=== PATIENT | female | born 1995 | race Caucasian/White ===

== ENCOUNTER 2024-07-30 08:12 | Outpatient (OUT) | payer OTHER, SELFPAY ==
[2024-07-30 10:10] LABS: Free T4 1.05 ng/dL (0.76-1.46)
[2024-07-30 10:15] LABS: Glucose 79 mg/dL (74-106); Thyroid Stimulating Hormone 0.623 uIU/mL (0.358-3.740)
[2024-07-31 04:07] LABS: Estradiol 93.5 pg/mL (.); Progesterone 0.2 ng/mL (.)
[2024-08-03 00:07] LABS: Free Testosterone(Direct) 0.6 pg/mL (0.0-4.2); Testosterone 18 ng/dL (8-60)
== END 2024-07-30 08:13 | disposition home or self-care (01) ==
LOC: LAB 08:21
PROVIDERS: PCP Family Medicine; Visit Provider Obstetrics & Gynecology
DX: L65.9 Nonscarring hair loss, unspecified (principal); R63.5 Abnormal weight gain; R53.83 Other fatigue
CPT/HCPCS: 36415; 82670; 82947; 83001; 84144; 84402; 84403; 84439; 84443

== ENCOUNTER 2024-12-03 08:35 | Outpatient (OUT) | payer OTHER, SELFPAY | END 2024-12-03 08:36 | disposition home or self-care (01) | LOC: LAB 08:36 | PROVIDERS: PCP Family Medicine; Visit Provider Obstetrics & Gynecology | DX: Z32.00 Encounter for pregnancy test, result unknown (principal) | CPT/HCPCS: 36415; 84702 ==

== ENCOUNTER 2024-12-05 08:20 | Outpatient (OUT) | payer OTHER, SELFPAY ==
--- OUTSIDE RECORDS SUMMARY | 2024-12-05 08:24 | XMS_ITS | Encounter Summary ---
Author Organization [facility] Address [address] [place] [address] Care Team Providers Care Laser Technician Name Role Phone Mariusz Becker MD Primary Care Provider [phone] Encounter Details Date Type Department Care Team (Late Contact Info) Description 08/07/2024 Results Follow-Up [facility] [address] [place] [address] Sheela Morataya, DO [address] [place] [address] TSH Social History Tobacco Use Types Packs/Day Years Used Date Smoking Tobacco: Never Smokeless Tobacco: Never Alcohol Use Standard Drinks/Week Comments Never 0 (1 standard drink = 0.6 oz pur e alcohol) caffeine:1cup per day Education Answer Date Recorded What is the highest level of school you have completed or the highest degree you have received? Bachelor's degree (e.g., BA, AB, BS) 08/05/2022 Comments Unknown Sex and Gender Information Value Date Recorded Sex Assigned at Not on file Legal Sex Female 7:25 PM EDT Gender Identity Not on file Sexual Orientation Not on file documented as of this encounter Plan of Treatment Upcoming Encounters Date Type Department Care Team (Late st Contact Info) Description 04/07/2025 10:15 AM EST Office Visit [facility] [address] [place] [phone] Sheela Morataya, DO [address] [place] [address] documented as of this encounter Visit Diagnoses Not on filedocumented in this encounter Care Teams Laser Technician Relationship Specialty Start Date End Date Mariusz Becker MD PCP - General Family Medicine 08/31/22 documented as of this encounter
--- OUTSIDE RECORDS SUMMARY | 2024-12-05 08:24 | XMS_ITS | Clinical Summary ---
Author Organization [facility] Address [address] [place] [address] Care Team Providers Care Site Physician Name Role Phone Mariusz Becker MD Primary Care Provider [phone] Allergies No known active allergies Medications Vit w/Wt-Ngesmgqlz-ZX (PNV PO) PNV Active Encounters Date Type Department Care Team Description 12/03/2024 Results Follow-Up [facility] [place] [facility] [address] [facility] [address] [place] [address] Sheela Morataya DO hCG, quantitative, 12/02/2024 Telephone [facility] [place] [facility] [address] [facility] [address] [place] [address] Sheela Morataya DO from Last 3 Months Family History Medical History Relation Name Comments No Known Problems Daughter Breast cancer Mother's Sister Aunt No Known Problems Sister Relation Name Status Comments Daughter Father Alive Mother Alive Mother's Sister Aunt Other Sister Social History Tobacco Use Types Packs/Day Years Used Date Smoking Tobacco: Never Smokeless Tobacco: Never Tobacco Cessation:Counseling Given: Not Answered Alcohol Use Standard Drinks/Week Comments Never 0 [...] on file Sexual Orientation Not on file Last Filed Vital Signs Vital Sign Reading Time Taken Comments Blood Pressure 102/60 11/28/2023 1:35 PM EDT Pulse - - Temperature - - Respiratory Rate - - Oxygen Saturation - - Inhaled Oxygen Concentration - - Weight 53.1 kg (117 lb) 11/28/2023 1:35 PM EDT Height 157.5 cm (5' 2 ) 11/28/2023 1:35 PM EDT Body Mass Index 21.4 11/28/2023 1:35 PM EDT Plan of Treatment Upcoming Encounters Date Type Department Care Team (Late st Contact Info) Description 04/07/2025 10:15 AM EST Office Visit [facility] [place] [facility] [address] [place] [address] Sheela Morataya DO [address] [place] [address] Procedures Procedure Name Priority Date/Time Associated Diagnosis Comments HCG, TOTAL, QN Routine 12/03/2024 2:48 PM EDT examination or test, unconfirmed from Last 3 Months Results * hCG, quantitative, (12/03/2024 2:48 PM EDT) Blood Venous blood specimen / Unknown us Sheela Morataya DO LAB BLOOD ORDERABLES Final Result EXTERNAL LAB from Last 3 Months Insurance [employer] Care Teams Site Physician Relationship Specialty Start Date End Date Mariusz Becker MD PCP - General Family Medicine 08/31/22
--- OUTSIDE RECORDS SUMMARY | 2024-12-05 08:24 | XMS_ITS | Encounter Summary ---
Author Organization [facility] Address [address] [place] [address] Care Team Providers Care It Systems Analyst Name Role Phone Mariusz Becker MD Primary Care Provider [phone] Encounter Details Date Type Department Care Team (Late st Contact Info) Description 12/03/2024 Results Follow-Up [facility] [place] [facility] [address] [facility] [address] [place] [phone] Sheela Morataya, DO [address] [facility] [address] [place] [address] hCG, quantitative, Social History Tobacco Use Types Packs/Day Years [...] on file documented as of this encounter Miscellaneous Notes * Telephone Encounter - Champ Abreu LPN - 12/05/2024 7:40 AM EDT See open TE documented in this encounter Plan of Treatment Upcoming Encounters Date Type Department Care Team (Late st Contact Info) Description 04/07/2025 10:15 AM EST Office Visit [facility] [place] [facility] [address] [place] [address] Sheela Morataya DO [address] [place] [address] documented as of this encounter Visit Diagnoses Not on filedocumented in this encounter Care Teams It Systems Analyst Relationship Specialty Start Date End Date Mariusz Becker MD PCP - General Family Medicine 08/31/22 documented as of this encounter
--- OUTSIDE RECORDS SUMMARY | 2024-12-05 08:24 | XMS_ITS | Encounter Summary ---
Author Organization [facility] Address [address] [place] [address] Care Team Providers Care Extruder Operator Multiple Name Role Phone Mariusz Becker MD Primary Care Provider [phone] Encounter Details Date Type Department Care Team (Late st Contact Info) Description 12/02/2024 Telephone [facility] [place] [facility] [address] [facility] [address] [place] [phone] Sheela Morataya DO [address] [facility] [address] [place] [address] Social History Tobacco Use Types Packs/Day Years [...] Telephone Encounter - Champ Abreu LPN - 12/04/2024 8:52 AM EDT Called and spoke with pt regarding HCG 715. Advised pt to return to get HCG drawn again 12/05 at [facility] doctors request. Order sent * Telephone Encounter - Champ Abreu LPN - 12/04/2024 8:51 AM EDT Sheela Morataya DO 12/03/24 3:38 PM Result Note Please call with quant result of 715- would repeat in 48 hours * Telephone Encounter - Jeanie Elder RN - 12/02/2024 4:08 PM EDT Pt calling office and LM at [phone]. States she is following up from earlier. Hoping to have HCG drawntoday, asking for a return call. Called and spoke with pt at this time. Confirmed positive UPT and LMP 11/05/24, regular. MAB x3 Patient of [facility], insurance MMO Discussed HCG. Pt would like sent to [facility]. Order sent. Advised I would call with results, aware she may need this repeated at least once. * Telephone Encounter - Chapis Hazel - 12/02/2024 9:35 AM EDT Patient called asking if she can have a hcg order sent over to [facility]. She took a positive test last week. The patient states the first day of her last period was November 05. She ask if astanding order can be placed as she typically needs a repeat hcg done. documented in this encounter Plan of Treatment Upcoming Encounters Date Type Department Care Team (Late st Contact Info) Description 04/07/2025 10:15 AM EST Office Visit [facility] [place] [facility] [address] [place] [phone] Sheela Morataya DO [address] [place] [address] Scheduled Orders Name Type Priority Associated Diagnoses Orde r Schedule hCG, quantitative Lab Routine examination or test, unconfirmed Expected: 12/04/2024 (Approximate), Expires: 12/04/2025 documented as of this encounter Procedures Procedure Name Priority Date/Time Associated Diagnosis Comments HCG, TOTAL, QN Routine 12/03/2024 2:48 PM EDT examination or test, unconfirmed documented in this encounter Results * hCG, quantitative, (12/03/2024 2:48 PM EDT) Blood Venous blood specimen / Unknown us Sheela Morataya DO LAB BLOOD ORDERABLES Final Result EXTERNAL LAB documented in this encounter Visit Diagnoses Diagnosis examination or test, unconfirmed documented in this encounter Care Teams Extruder Operator Multiple Relationship Specialty Start Date End Date Mariusz Becker MD PCP - General Family Medicine 08/31/22 documented as of this encounter
--- OUTSIDE RECORDS SUMMARY | 2024-12-05 08:24 | XMS_ITS | Clinical Summary ---
Author Organization [facility] tem Address [id number] [address] [place] [address] Care Team Providers Care Medical Transcription Name Role Phone No Pcp, No Pcp Primary Care Provider Unavailabl e Social History Tobacco Use Types Packs/Day Years Used Date Smoking Tobacco: Never Assessed Childcare Answer Date Recorded Childcare Unknown 08/29/2018 Employment Answer Date Recorded Employment Unknown 08/29/2018 Purpose - Life Answer Date Recorded Purpose and direction in life Unknown Comments Unknown Sex and Gender Information Value Date Recorded Sex Assigned at Not on file Legal Sex Female 12:42 PM EDT Gender Identity Not on file Sexual Orientation Not on file Plan of Treatment Not on file Medical Devices Not on file Insurance [employer] Care Teams Medical Transcription Relationship Specialty Start Date End Date No Pcp, [place] [id number] PCP - General Family Medicine 08/17/17
--- OUTSIDE RECORDS SUMMARY | 2024-12-05 08:25 | XMS_ITS | Encounter Summary ---
Author Organization [facility] Address [address] [place] [address] Care Team Providers Care Reproduction Artist Name Role Phone Mariusz Becker MD Primary Care Provider [phone] Encounter Details Date Type Department Care Team (Late Contact Info) Description 08/05/2022 Abstract [facility] [address] [place] [phone] Sheela Morataya DO [address] [place] [address] Social History Tobacco Use Types Packs/Day Years Used Date Smoking Tobacco: Never Smokeless Tobacco: Never Alcohol Use Standard Drinks/Week Comments Never 0 (1 standard drink = 0.6 oz pur e alcohol) caffeine:1cup per day Education Answer Date Recorded What is the highest level of school you have completed or the highest degree you have received? Bachelor's degree (e.g., BA, AB, BS) 08/05/2022 Comments Yes Sex and Gender Information Value Date Recorded Sex Assigned at Not on file Legal Sex Female 7:25 PM EDT Gender Identity Not on file Sexual Orientation Not on file documented as of this encounter Plan of Treatment Upcoming Encounters Date Type Department Care Team (Late Contact Info) Description 04/07/2025 10:15 AM EST Office Visit [facility] [address] [place] [phone] Sheela Morataya DO [address] [place] [address] documented as of this encounter Visit Diagnoses Not on filedocumented in this encounter Care Teams Reproduction Artist Relationship Specialty Start Date End Date Mariusz Becker MD PCP - General Family Medicine 08/31/22 documented as of this encounter
--- OUTSIDE RECORDS SUMMARY | 2024-12-05 08:25 | XMS_ITS | Encounter Summary ---
Author Organization [facility] Address [address] [place] [address] Care Team Providers Care Bricklayer'S Assistant Name Role Phone Mariusz Becker MD Primary Care Provider [phone] Encounter Details Date Type Department Care Team (Late Contact Info) Description 09/06/2022 Abstract [facility] [address] [place] [phone] Sheela Morataya DO [address] [place] [address] Social History Tobacco Use Types Packs/Day Years [...] [address] [place] [phone] Sheela Morataya DO [address] [place] [address] documented as of this encounter Visit Diagnoses Not on filedocumented in this encounter Care Teams Bricklayer'S Assistant Relationship Specialty Start Date End Date Mariusz Becker MD PCP - General Family Medicine 08/31/22 documented as of this encounter
--- OUTSIDE RECORDS SUMMARY | 2024-12-05 08:25 | XMS_ITS | Encounter Summary ---
Author Organization [facility] Address [address] [place], [place] [phone] Care Team Providers Care It Infrastructure Manager Name Role Phone Mariusz Becker MD Primary Care Provider [phone] Source Comments In the event this information is protected by the Federal Confidentiality of Alcohol and Drug AbusePatient Records regulations: The Federal rules restrict any use of the information to criminally investigate or prosecute any alcohol or drug abuse patient.[facility] Encounter Details Date Type Department Care Team (Latest Contact Info) Description 05/07/2018 H&P External-NonCCF Provider, External, PA-C Do not enter address information under generic External Provider. Social History Tobacco Use Types Packs/Day Years Used Date Smoking Tobacco: Never Assessed Comments No Sex and Gender Information Value Date Recorded Sex Assigned at Not on file Legal Sex Female 8:05 AM EST Gender Identity Not on file Sexual Orientation Not on file documented as of this encounter Functional Status * Are you deaf or do you have serious difficulty hearing? Answer Date of Assessment Author No 08/19/2013 7:00 AM Boy Curtis * Are you blind or do you have serious difficulty seeing, even when wearing glasses? Answer Date of Assessment Author No 08/19/2013 7:00 AM Boy Curtis * Do you have serious difficulty walking or climbing stairs? Answer Date of Assessment Author No 08/19/2013 7:00 AM Boy Curtis * Do you have difficulty dressing or bathing? Answer Date of Assessment Author No 08/19/2013 7:00 AM Boy Curtis * Because of a physical, mental, or emotional condition, do you have difficulty doing errands alone such as visiting a doctor's office or shopping? Answer Date of Assessment Author No 08/19/2013 7:00 AM Boy Curtis documented as of this encounter Mental Status * Because of a physical, mental, or emotional condition, do you have serious difficulty concentrating, remembering, or making decisions? Answer Entry Date Author No 08/19/2013 7:00 AM Boy Curtis documented in this encounter Plan of Treatment Not on file documented as of this encounter Visit Diagnoses Not on filedocumented in this encounter Care Teams It Infrastructure Manager Relationship Specialty Start Date End Date Mariusz Becker MD PCP - General 12/25/05 documented as of this encounter
--- OUTSIDE RECORDS SUMMARY | 2024-12-05 08:25 | XMS_ITS | Encounter Summary ---
Author Organization [facility] Address [address] [place] [address] Care Team Providers Care Workers Compensation Attorney Name Role Phone Mariusz Becker MD Primary Care Provider [phone] Encounter Details Date Type Department Care Team (Late Contact Info) Description 06/08/2023 Abstract [facility] [address] [place] [phone] Sheela Morataya DO [address] [place] [address] Social History Tobacco Use Types Packs/Day Years Used Date Smoking Tobacco: Never Smokeless Tobacco: Never Alcohol Use Standard Drinks/Week Comments Never 0 (1 standard drink = 0.6 oz pur e alcohol) caffeine:1cup per day Education Answer Date Recorded What is the highest level of school you have completed or the highest degree you have received? Bachelor's degree (e.g., BA, AB, BS) 08/05/2022 Comments No Sex and Gender Information Value [...] [address] [place] [phone] Sheela Morataya DO [address] [place] [address] documented as of this encounter Visit Diagnoses Not on filedocumented in this encounter Care Teams Workers Compensation Attorney Relationship Specialty Start Date End Date Mariusz Becker MD PCP - General Family Medicine 08/31/22 documented as of this encounter
--- OUTSIDE RECORDS SUMMARY | 2024-12-05 08:25 | XMS_ITS | Encounter Summary ---
Author Organization [facility] Address [address] [place] [address] Care Team Providers Care Adobe Cq Developer Name Role Phone Mariusz Becker MD Primary Care Provider [phone] Encounter Details Date Type Department Care Team (Late Contact Info) Description 08/22/2022 Orders Only [facility] [address] [place] [address] Provider, MD Nick [address] [place] [id number] Social History Tobacco Use Types Packs/Day Years [...] [address] [place] [address] Sheela Morataya DO [address] [place] [address] documented as of this encounter Procedures Procedure Name Priority Date/Time Associated Diagnosis Comments ULTRASOUND : OBSTETRICS Routine 08/18/2022 9:41 AM EDT documented in this encounter Results * ULTRASOUND : OBSTETRICS (08/18/2022 9:41 AM EDT) Anatomical Region Laterality Modality Radiographic Sheri ging us Historical Provider IMG XR PROCEDURES Final R esult documented in this encounter Visit Diagnoses Not on filedocumented in this encounter Care Teams Adobe Cq Developer Relationship Specialty Start Date End Date Mariusz Becker MD PCP - General Family Medicine 08/31/22 documented as of this encounter
--- OUTSIDE RECORDS SUMMARY | 2024-12-05 08:25 | XMS_ITS | Clinical Summary ---
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 Mar 2022 Critical titer met. Plan Weekly MCA Dopplers. 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 MCA dopplers every other week. Delivery planned for 37 weeks. History of blood transfusion 2018 Scoliosis (and kyphoscoliosis), idiopathic 05/01 Social History Tobacco Use Types Packs/Day Years Used Date Smoking Tobacco: Never Assessed Area Deprivation Index Answer Date Cheikh rded National Score (1-100), lower number is lower ri sk 64 07/21/2022 State Score (1-10), lower number is lower risk 4 07/21/2022 Data from: https://www.neigh borhoodatlas.medicine.[facility]/. Last address used for calculation [address] 07/21/2022 Comments No Sex and Gender Information Value Date Recorded Sex Assigned at Not on file Legal Sex Female 8:05 AM EST Gender Identity Not on file Sexual Orientation Not on file Last Filed Vital Signs Vital Sign Reading Time Taken Comments Blood Pressure 125/68 09/01/2022 3:46 PM EDT Pulse 83 09/01/2022 3:46 PM EDT Temperature 36.2 C (97.2 F) 02/22/2008 8:12 AM EST Respiratory Rate 17 02/22/2008 8:12 AM EST Oxygen Saturation 98% 02/22/2008 8:12 AM EST Inhaled Oxygen Concentration - - Weight 69.9 kg (154 lb) 09/01/2022 3:46 PM EDT Height 160 cm (5' 3 ) 09/01/2022 3:46 PM EDT Body Mass Index 27.28 09/01/2022 3:46 PM EDT Plan of Treatment Health Maintenance Due Date Last Done Comments Anxiety Screening 2011 Depression Screening 2011 HIV Screening 2011 Hepatitis C Screening 2011 Cervical Cancer Screening 2014 Influenza Vaccine (#1) 2024 , 01/30/2019, 01/10/2018, Additional history exists DTaP,Tdap,Td Vaccine (6 - Td or Tdap) 10/08/2028 10/08/2018, 09/15/2008, 1993, Additional history exists Hepatitis B Vaccine Completed 1993, 1993, 1993 HPV Vaccine Completed 04/10/2011, 11/17, 09/29/2010 Insurance BLUE ACCESS PPO Care Teams Heel Sander Relationship Specialty Start Date End Date Mariusz Becker MD PCP - General 12/25/05
--- OUTSIDE RECORDS SUMMARY | 2024-12-05 08:25 | XMS_ITS | Patient Health Record ---
Author Organization [facility] in [place] Address [address] [place] [address] Care Team Providers Care Churn Operator Name Role Phone Yoni Becker Primary Care Provider [phone] Allergies No Known Allergies Results Component Value Reference Range Notes FREE T4 Reviewed date:07/30/2024 07:13:33 PM Interpretation: Performing Lab: Notes/Report: [facility] , Free T4 1.05 0.76-1.46 ng/dL Performing Lab: see note ML - [facility] LB GLUCOSE BLOOD Reviewed date:07/30/2024 07:13:33 PM Interpretation: Performing Lab: Notes/Report: [facility] , Glucose 79 74-106 mg/dL Performing Lab: see note ML - [facility] LB TSH Reviewed date:07/30/2024 07:13:33 PM Interpretation: Performing Lab: Notes/Report: [facility] , Thyroid Stimulating Hormone 0.623 0.358-3.740 u IU/mL Performing Lab: see note ML - [facility] LB PREG QUANT HCG Reviewed date:12/03/2024 12:29:07 PM Interpretation: Performing Lab: Notes/Report: [facility] , HCG Quantitative 715 5-50 0.2-1 WEEK 50-500 1-2 WEEKS 100-5,000 2-3 WEEKS 500-10,000 3-4 WEEKS 1,000-50,000 4-5 WEEKS 10,000-100,000 5-6 WEEKS 15,000-200,000 6-8 WEEKS 10,000-100,000 2-3 MONTHS Performing Lab: see note [facility] LB Testosterone,Free and Total Reviewed date:08/03/2024 09:49:10 PM Interpretation: Performing Lab: Notes/Report: [facility] , Testosterone 18 8-60 ng/dL Free Testosterone(Direct) 0.6 0.0-4.2 pg/mL Performed at: [address] [id number] Equipment Lead: Immanuel Patel PhD, Phone: [phone] Performed at: [address] [id number] Equipment Lead: Jemal Phillips MD, Phone: [phone] Performing Lab: see note [facility] LB Estradiol Reviewed date:08/03/2024 09:49:10 PM Interpretation: Performing Lab: Notes/Report: [facility] , Estradiol 93.5 . pg/mL Adult Female Range Follicular phase 12.5 - 166.0 Ovulation phase 85.8 - 498.0 Luteal phase 43.8 - 211.0 Postmenopausal <6.0 - 54.7 1st trimester 215.0 - >4300.0 Carin ECLIA methodology Performing Lab: see note [facility] LB FSH Reviewed date:08/03/2024 09:49:10 PM Interpretation: Performing Lab: Notes/Report: [facility] , FSH 5.0 . mIU/mL Adult Female Range Follicular phase 3.5 - 12.5 Ovulation phase 4.7 - 21.5 Luteal phase 1.7 - 7.7 Postmenopausal 25.8 - 134.8 Performing Lab: see note [facility] LB Progesterone Reviewed date:08/03/2024 09:49:10 PM Interpretation: Performing Lab: Notes/Report: [facility] , Progesterone 0.2 . ng/mL Follicular phase 0.1 - 0.9 Luteal phase 1.8 - 23.9 Ovulation phase 0.1 - 12.0 First trimester 11.0 - 44.3 Second trimester 25.4 - 83.3 Third trimester 58.7 - 214.0 Postmenopausal 0.0 - 0.1 Performed at: [address] [id number] Equipment Lead: Immanuel Patel PhD, Phone: [phone] Performing Lab: see note LC - [facility] LB Reason For Referral No Information Medications Medication SIG (Take, Route, Frequency, Duration) Notes Start Date End Date Status Amoxicillin-Pot Clavulanate 875-125 MG 1 tablet Orally every 12 hrs; Duration: 10 day(s) 12/25/2022 Active 28-0.8 MG 1 tablet Orally Once a day Active Social History Tobacco Use: Social History Observation Description Date Details (start date - stop date) Never Smoker NA - NA Tobacco Use/Smoking Question Answer Notes Patient is a nonsmoker Alcohol Screen (Audit-C) Question Answer Notes Did you have a drink containing alcohol in the p ast year? No Points 0 Interpretation Negative Problems Problem Type SNOMED Code ICD Code Onset Dates Problem Status W/U Status Risk Notes Problem Attention deficit hyperactivity disorder (060476422) ADHD (attention deficit hyperactivity disorder) (F90.9) Active confirmed Problem Seasonal allergic rhinitis (851870428) Seasonal allergic rhinitis (J30.2) Active confirmed Problem Acute sinusitis (82297011) Acute sinus infection (J01.90) Active confirmed Problem Pelvic congestion syndrome (42836418) Pelvic congestion syndrome (N94.89) Active confirmed Plan Of Treatment No Information Insurance Providers Payer Name Payer Address Payer Phone Subscriber Number Group Number Insured Name Patient Relationship to Insured Coverage Start Date Coverage End Date [employer] PPO PLUS LOCAL PLAN [address] [place] [phone] [id number] Meli Ash Self - patient is the insured 3 Medical (General) History Medical History History ICD Code Bunion M21.619 Seasonal allergic rhinitis J30.2 Pelvic congestion syndrome N94.89 ADHD (attention deficit hyperactivity di sorder) F90.9 Varicella without complication B01.9 Scoliosis M41.9 Surgical History Surgery Date(Month/Year) Spinal fusion lumbar and thoracic 2013 Hospitalization History Reason Date(Month/Year) child see above
== END 2024-12-05 08:21 | disposition home or self-care (01) ==
LOC: LAB 08:21
PROVIDERS: PCP Family Medicine; Visit Provider Obstetrics & Gynecology
DX: Z32.00 Encounter for pregnancy test, result unknown (principal)
CPT/HCPCS: 36415; 84702

== ENCOUNTER 2024-12-23 09:26 | Outpatient (OUT) | payer OTHER, SELFPAY ==
[2024-12-23 10:01] LABS: Hematocrit 33.5 % (36.0-48.0); Hemoglobin 11.4 g/dL (12.0-16.0); Immature Granulocytes Abs Auto 0.01 10^3/uL (0.00-0.03); Immature Granulocytes Pct Auto 0.2 % (0.0-0.5); Lymphocytes Absolute Auto 1.4 10^3/uL (1.2-3.8); Mean Corpuscular HGB Conc 34.0 g/dL (29.9-35.2); Mean Corpuscular Hemoglobin 28.8 pg (26.7-34.0); Mean Corpuscular Volume 84.6 fL (81.0-99.0); Platelet Count 171 10^3/uL (150-450); Red Blood Count 3.96 10^6/uL (4.20-5.40); White Blood Count 4.7 10^3/uL (4.0-11.0)
[2024-12-23 10:16] LABS: Glucose Urine UA NEGATIVE (NEGATIVE)
[2024-12-23 10:21] LABS: Cast Seen? NONE SEEN #/LPF (NONE SEEN); Crystals Seen? None Seen #/HPF (None Seen)
[2024-12-23 14:03] LABS: Cannabinoid Screen Urine NEGATIVE (NEGATIVE); Methamphetamines Screen Urine NEGATIVE (NEGATIVE); Tricyclic Antidepressant Urine NEGATIVE (NEGATIVE)
[2024-12-24 06:12] LABS: RPR Non Reactive (Non Reactive); Rubella Antibodies, IgG 3.30 index (Immune >0.99)
== END 2024-12-23 09:27 | disposition home or self-care (01) ==
LOC: LAB 09:27
PROVIDERS: PCP Family Medicine; Visit Provider Obstetrics & Gynecology
DX: Z34.81 Encounter for supervision of other normal pregnancy, first trimester (principal)
CPT/HCPCS: 36415; 80307; 81001; 85025; 86592; 86762; 86803; 86850; 86900; 86901; 87086; 87340; 87389

== ENCOUNTER 2025-02-27 08:05 | Outpatient (OUT) | payer OTHER, SELFPAY | END 2025-02-27 08:06 | disposition home or self-care (01) | LOC: LAB 08:07 | PROVIDERS: PCP Family Medicine; Visit Provider Obstetrics & Gynecology | DX: Z34.82 Encounter for supervision of other normal pregnancy, second trimester (principal) | CPT/HCPCS: 36415; 86850; 86900; 86901 ==

== ENCOUNTER 2025-03-02 08:12 | Outpatient (OUT) | payer OTHER, SELFPAY ==
--- OUTSIDE RECORDS SUMMARY | 2025-03-02 08:16 | XMS_ITS | Clinical Summary ---
Author Organization [facility] Address [address] [place] [address] Care Team Providers Care Business Insurance Agent Name Role Phone Mariusz Becker MD Primary Care Provider [phone] Allergies No known active allergies Medications MedicationSigDispense QuantityRefillsLast FilledStart DateEnd DateStatus Vit w/Au-Fmmgabtdr-DZ (PNV PO) PNVActive Encounters DateTypeDepartmentCare HythYwyoqostwtb42/10/2025Telephone [facility] [place] [facility] [address] [place] [address] Sheela Morataya, DO 01/27/2025 1:00 PM ESTInitial [facility] [place] [facility] [address] [place] [address] Shelea Morataya, DO [place]: 77a7u7903/29/2024amboo flowsheet [facility] [place] [facility] [address] [place] [address] Sheela Morataya, DO 01/27/20255789Iavhrd06/16/2025 8:45 AM EDTAncillary Procedure [facility] [place] [facility] [address] [place] [address] related condition in first trimester ([facility]); History of miscarriage, currently ([facility])01/01/20250764Mtyauh41/07/2025 External Result Encounter [facility] Unsolicited Sheela Morataya, DO 12/15/2024 8:30 AM EDTInitial [facility] [place] [facility] [address] [place] [phone] [place]: 5w5d12/15/20245598Cjeral89/17/2025Results Follow-Up [facility] [address] [place] [phone] Sheela Morataya DO hCG, quantitative, ipgqmzgki08/16/2025Telephone [facility] [address] [place] [address] Sheela Morataya, from Last 3 Months Family History Medical HistoryRelationNameCommentsNo Known ProblemsDaughterNo Known Problems FatherNo Known ProblemsMaternal GrandfatherNo Known ProblemsMaternal Grandmother Blood ClotMother1 occurence - no other hxBreast cancerMother's SisterAuntNo Known ZxlvhpdrGekunoRstsejdeHgafIiafpjZkzpbjzyMnwvypdd3PzothqHfoyhLmjkysvy GrandfatherAliveMaternal GrandmotherAliveMotherAliveMother's SisterAuntOther Paternal GrandfatherDeceasedPaternal GrandmotherDeceasedSister Social History Tobacco UseTypesPacks/DayYears UsedDateSmoking Tobacco: NeverSmokeless Tobacco: Never Tobacco Cessation:Counseling Given: Not Answered Alcohol UseStandard Drinks/WeekCommentsNever0 (1 standard drink = 0.6 oz pure alcohol)caffeine:1cup per dayEducationAnswerDate RecordedWhat is the highest level of school you have completed or the highest degree you have received? Bachelor's degree (e.g., BA, AB, BS)3Estimated Date of Delivery UachvbgzGyw45/27/2026Based on last menstrual period of 11/05/2024Sex and Gender InformationValueDate RecordedSex Assigned at BirthNot on fileLegal SexFemale 05/31/2022 7:25 PM EDTGender IdentityNot on fileSexual OrientationNot on file Last Filed Vital Signs Vital SignReadingTime TakenCommentsBlood Tbjetejj334/7011/01/2025 12:51 PM EST Pulse--Temperature--Respiratory Rate--Oxygen Saturation--Inhaled Oxygen Concentration--Yvgxen90.6 kg (127 lb)01/27/2025 12:51 PM MIMGlhtsi062.5 cm (5' 2 )11/28/2023 1:35 PM EDTBody Mass Index23.23011/28/2023 1:35 PM EDT Plan of Treatment DateTypeDepartmentCare Team (Latest Contact Info)Ujcgywtiydb56/16/2025 2:45 PM ESTRoutine [facility] [address] [place] [phone] Sheela Morataya, DO [address] [place] [address] 03/24/2025 8:45 AM ESTAncillary Procedure [facility] [address] [place] [phone] 03/24/2025 9:15 AM ESTRoutine [facility] [address] [place] [phone] Sheela Morataya, DO [address] [place] [address] 04/07/2025 10:15 AM ESTOffice Visit [facility] [address] [place] [phone] Sheela Morataya, DO [address] [place] [address] Goals GoalPatient Goal TypeAssociated ProblemsRecent ProgressPatient-Stated?Author Reminders Care PlanOB RemindersChamp Benson LPN Procedures Procedure NamePriorityDate/TimeAssociated DiagnosisCommentsPOCT URINALYSIS 4 JNJNMEIYMojzhhl33/11/2025 12:53 PM EST 11 weeks gestation of ([facility]) IGP,CTNG,RFXAPTHPV,RFX16/18,73Skxkbvk75/11/2025 12:00 AM EST Screening for malignant neoplasm of cervix Screen for sexually transmitted diseases US OB JRVRKQBDUGHVFcomebn86/16/2025 9:12 AM EDT related condition in first trimester ([facility]) History of miscarriage, currently ([facility]) CULTURE, URINE, JGUBWUJUwoilrn45/07/2025 9:35 AM EDT HCG, TOTAL, QVWlyorfz65/17/2025 2:48 PM EDT examination or test, unconfirmed from Last 3 Months Results * POCT URINALYSIS 4 DIPSTICK (01/27/2025 12:53 PM EST)ComponentValueRef Range Test MethodAnalysis TimePerformed AtPathologist SignatureGlucose, UANegative Negative - 1999(110) ++++ mg/dLProtein, UANegativeNegative - 1999(20) ++++ mg/dLSpecimen (Source)Anatomical Location / LateralityCollection Method / VolumeCollection TimeReceived AbnrBwpht79/11/2025 12:53 PM EST Narrative Authorizing ProviderResult TypeResult StatusKatcha Morataya DOPOINT OF CARE TEST ENTER/EDIT ORDERABLESFinal Result * IGP,CtNg,rfxAptHPV,rfx16/18,45 (01/27/2025 12:00 AM EST)ComponentValueRef RangeTest MethodAnalysis TimePerformed AtPathologist SignatureDiagnosis: CommentLABCORPComment:NEGATIVE FOR INTRAEPITHELIAL LESION OR MALIGNANCY. Specimen Adequacy:CommentLABCORPComment: Satisfactory for evaluation. ??Endocervical and/or squamous metaplastic cells (endocervical component) are present. Clinician Provided ICD10:CommentLABCORPComment: Z12.4 Z11.3 Performed By:CommentLABCORPComment:Diamond Shannon, Natural Developer ([facility])Cyto Comments.LABCORPNote:CommentLABCORPComment: The Pap smear is a screening test designed to aid in the detection of premalignant and malignant conditions of the uterine cervix. ??It is not a diagnostic procedure and should not be used as the sole means of detecting cervical cancer. ??Both false-positive and false-negative reports do occur. Test Methodology:CommentLABCORPComment: This liquid based ThinPrep(R) pap test was interpreted using the [employer](R) Genius(TM) Cervical Algorithm whole slide imaging system. .CommentLABCORPComment: The HPV DNA reflex criteria were not met with this specimen result therefore, no HPV testing was performed. CHLAMYDIA, NUC. ACID AMPNegativeNegativeLABCORPGONOCOCCUS, NUC. ACID AMPNegative NegativeLABCORPSpecimen (Source)Anatomical Location / LateralityCollection Method / VolumeCollection TimeReceived TimeSwabCervical swab / Scyvath5101/27/2025 5Comment:Cervical Swab Print r Narrative [facility] - 01/29/2025 11:08 AM EST Performed at: 01 - [facility] ??[id number] Municipal Services Manager: Dona Garcia MD, Phone: ??[phone] Performed at: ??02 - [facility] [address] ??[id number] Municipal Services Manager: Dona Garcia MD, Phone: ??[phone] Specimen Comment: [id number] Specimen Comment: Source.............Cervix Specimen Comment: Other.............. Specimen Comment: No. of containers..01 ThinPrep Vial Authorizing ProviderResult TypeResult StatusKatcha LOOMIS CYTOLOGY ORDERABLESFinal ResultPerforming OrganizationAddressCity/State/ZIP CodePhone Number [facility] * OB transvaginal (01/01/2025 9:12 AM EDT)Anatomical RegionLateralityModality BodyUltrasoundStudy GAStudy DateStudy EDDWorking GIOVANNI (Source)01/01/2025 08/12/2025 (Last Menstrual Period)Fetus A MeasurementsValueGA (days)CRLSac DiameterBiparietal DiameterHead CircumferenceAbdominal CircumferenceFemur LengthFetal Ulna LengthFetal Humerus LengthFetal Tibia LengthHeart RateYOLK SAC MEASUREMENTCERVICAL W/FUNDAL PRESSURECERVICAL W/ VALSALVASpecimen (Source) Anatomical Location / LateralityCollection Method / VolumeCollection Time Received Time Narrative 01/13/2025 12:51 PM EDT Table formatting from the original result was not included. Images from the original result were not included. ?? Obstetrics & Gynecology ? [address] ? [address] ? [address] ?[address], [facility] ? [place] [address] ?[place] [address] ? - - - - - - - - - - - - - - - - - - - - - - - - - - - - - - - - - - - - - - - - - - - - - - - - - - - - - - - - - - - - - - - - - - ?Early Assessment Patient name: Meli Ash : 1995 (29 y.o.) Date of exam: 01/01/25 - - - - - - - - - - - - - - - - - - - - - - - - - - - - - - - Indication: first trimester screening, history of MAB Surgical History: none Method: Transvaginal ultrasound examination View: Adequate - - - - - - - - - - - - - - - - - - - - - - - - - - - - - - - Type of gestation: Mireles Number of embryos: 1 - - - - - - - - - - - - - - - - - - - - - - - - - - - - - - - Dating: Method of dating: Date: Details: Gest Age: GIOVANNI: Assigned dating: LMP 11/05/24 ??8 w 1 d 08/12/25 [x] Ultrasound 01/01/25 CRL ??8 w 5 d 08/08/25 [] - - - - - - - - - - - - - - - - - - - - - - - - - - - - - - - Fetus: Gestational sac: visualized Location: Intrauterine Yolk sac: visualized (4 mm) Amniotic sac: visualized Embryo: visualized Cardiac activity: present FHR: 178 bpm - - - - - - - - - - - - - - - - - - - - - - - - - - - - - - - Maternal Structures: Uterus: Visualized Size: 13 x 7.7 x 6.4 cm ??Volume: 332 cm?? Appearance: There is a 2.6 x 1.4 x 1.7 cm hypoechogenic area located adjacent to the gestational sac. Right ovary: Visualized Size: 3.8 x 1.5 x 1.6 cm ??Volume: 4.8 cm?? Appearance: no cysts visualized No adnexal mass visualized Left ovary: Visualized Size: 3.8 x 4.4 x 2.5 cm ??Volume: 22 cm?? Appearance: The left ovary contains the corpus luteal cyst: thick-walled, sonolucent, internal debris (2.9 x 2.1 x 2.2 cm) No adnexal mass visualized - - - - - - - - - - - - - - - - - - - - - - - - - - - - - - - - - - - - - - - - - - - - - - - - - - - - - - - - - - - - - - - - - - Impression: There is a single intrauterine having normal cardiac activity. Today's ultrasound size is equal to the LMP dates. The uterus and adnexa appear normal. There is a 2.6 x 1.4 x 1.7 cm hypoechogenic area located adjacent to the gestational sac. The right ovary appears normal. The left ovary contains the corpus luteal cyst: thick-walled, sonolucent, internal debris (2.9 x 2.1 x 2.2 cm) *Please note that a normal ultrasound does not rule out anomalies* - - - - - - - - - - - - - - - - - - - - - - - - - - - - - - - - - - - - - - - - - - - - - - - - - - - - - - - - - - - - - - - - - - Ordering/Reading Provider: Sheela Morataya D.O. ??Forge Hand: Edwar Farmer RDMS Authorizing ProviderResult TypeResult StatusSheela Morataya DOIMG OB US PROCEDURESFinal Result * Urine culture (12/23/2024 9:35 AM EDT)ComponentValueRef RangeTest Method Analysis TimePerformed AtPathologist SignatureFR NOTE <9,000 colonies/ml mixed ?bacterial skin contaminants ?2 Days 12/25/2024 10:54 AM [facility] CtrSpec[facility] (Source)Anatomical Location / LateralityCollection Method / VolumeCollection TimeReceived Time UrineUrine specimen obtained by clean catch procedure / Semodup0312/23/2024 9:35 AM EDT1 12:52 PM EDTComment:Clean-Voided Midstream Narrative Authorizing ProviderResult TypeResult Jenny Morataya DOLAB MICROBIOLOGY - GENERAL ORDERABLESFinal ResultPerforming OrganizationAddressCity/State/ZIP CodePhone Number [facility] [address] [id number], [facility] [address] [place] [address] * hCG, quantitative, (12/03/2024 2:48 PM EDT)Specimen (Source) Anatomical Location / LateralityCollection Method / VolumeCollection Time Received TimeBloodVenous blood specimen / Unknown Narrative Authorizing ProviderResult TypeResult Jenny Morataya DOLAB BLOOD ORDERABLESFinal ResultPerforming OrganizationAddressCity/State/ZIP CodePhone Number EXTERNAL LAB from Last 3 Months Additional Health Concerns Active ProblemsNoted DateDiagnosed DateOB Pahxcrzua68/29/2025 Insurance Care Teams Team MemberRelationshipSpecialtyStart DateEnd Date Mariusz Becker MD [address] [place] [phone] PCP - GeneralFamily Medicine08/31/22
--- OUTSIDE RECORDS SUMMARY | 2025-03-02 08:16 | XMS_ITS | Clinical Summary ---
Author Organization [facility] Address [address] [place], [place] [address] Care Team Providers Care Flag Signaler Name Role Phone Mariusz Becker MD Primary Care Provider [phone] Allergies No known active allergies Medications No known medications Active Problems ProblemNoted DateDiagnosed DateRed blood cell antibody svnpiasi75/16/2023 Overview (09/01/2022): See Blood Bank Report, Antibody Interpretation for details. Mar 2022 Critical titer met. Plan Weekly MCA Dopplers. 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 History of blood wszvyzqzdqm60/22/2019Scoliosis (and kyphoscoliosis), idiopathic 05/01/2007 Social History Tobacco UseTypesPacks/DayYears UsedDateSmoking Tobacco: Never AssessedArea Deprivation IndexAnswerDate RecordedNational Score (1-100), lower number is lower wsdi019907/21/2022State Score (1-10), lower number is lower jqxd850 Data from: https://www.neighborhoodatlas.medicine.[facility]/. Last address used for [address] [place] [address]CommentsNoSex and Gender Information ValueDate RecordedSex Assigned at BirthNot on fileLegal HwsWnzsai65/02/2012 8:05 AM ESTGender IdentityNot on fileSexual OrientationNot on file Last Filed Vital Signs Vital SignReadingTime TakenCommentsBlood Huoraatu231/68009/01/2022 3:46 PM EDT Apwwi320509/01/2022 3:46 PM WDHKponbyiftus60.2 ??C (97.2 ??F)02/22/2008 8:12 AM ESTRespiratory Zmzc299504/24/2007 8:12 AM ESTOxygen Giykxpruyc94%02/22/2008 8:12 AM ESTInhaled Oxygen Concentration--Ijxefz28.9 kg (154 lb)09/01/2022 3:46 PM EDT Iszmnz612 cm (5' 3 )09/01/2022 3:46 PM EDTBody Mass Index27.28009/01/2022 3:46 PM EDT Plan of Treatment Health MaintenanceDue DateLast DoneCommentsAnxiety Zqrrgkfjd53/22/2012Depression Aqzgiptqq24/22/2012HIV Trayulnxb73/22/2012Hepatitis C Pzypyghsw21/22/2012 Cervical Cancer Almvtnzlu61/22/2015Covid-19 Vaccine ( season) 2024Influenza Vaccine (#1)51, 01/30/2019, 01/10/2018, Additional history existsDTaP,Tdap,Td Vaccine (6 - Td or Tdap)10/08/2028 10/08/2018, 09/15/2008, 1993, Additional history existsHepatitis B Vaccine Ppsykbfjn28/07/1994, 1993, 1993HPV NejwbhhYyefcremx06/23/2012, 12/01/2010, 09/29/2010 Insurance * Guarantor: Meli Ash TypeRelation to PatientDate of PhoneBilling AddressPersonal/DrsompFbqt80/22/1994 (Work) [address] [place] [address] Care Teams Team MemberRelationshipSpecialtyStart Date Mariusz Becker MD PCP - Ylokjue33/9/06
--- OUTSIDE RECORDS SUMMARY | 2025-03-02 08:16 | XMS_ITS | Patient Health Record ---
Author Organization [facility] in [place] Address [address] [place] [address] Care Team Providers Care Crucible Furnace Tender Name Role Phone Yoni Becker Primary Care Provider [phone] Allergies No Known Allergies Results Component Value Reference Range Notes ANTIBODY ID PANEL Reviewed date:12/25/2024 12:41:16 PM Interpretation: Performing Lab: Notes/Report: [facility] , Antibody Identification FYA PERFORMED BY LABCORPCBC AUTO DIFF Reviewed date:12/23/2024 04:20:41 PM Interpretation: Performing Lab: Notes/Report: [facility] ,White Blood Count4.74.0-11.0 10 3/uLRed Blood Count3.964.20-5.40 10 6/uL Yokkzxftil26.412.0-16.0 g/gCZtdulmlomc54.536.0-48.0 %Mean Corpuscular Qrpzud08.6 81.0-99.0 fLMean Corpuscular Qnmvjndqbl05.826.7-34.0 pgMean Corpuscular HGB Conc 34.029.9-35.2 g/dLRed Cell Distribution Width12.311.0-15.0 %Platelet Imyje954 150-450 10 3/uLMean Platelet Pyhtkw88.19.5-13.5 fLNeutrophils Percent Auto61.2 43.0-75.0 %Lymphocytes Percent Auto30.520.5-60.0 %Monocytes Percent Auto6.41.7- 12.0 %Eosinophils Percent Auto1.10.9-7.0 %Basophils Percent Auto0.60.2-2.0 % Immature Granulocytes Pct Auto0.20.0-0.5 %Neutrophils Absolute Auto2.91.4-6.5 10 3/uLLymphocytes Absolute Auto1.41.2-3.8 10 3/uLMonocytes Absolute Auto0.30.3-0.8 10 3/uLEosinophils Absolute Auto0.10.0-0.7 10 3/uLBasophils Absolute Auto0.00.0- 0.1 10 3/uLImmature Granulocytes Abs Auto0.010.00-0.03 10 3/uLPerforming Lab:see note - [facility] LBDRUG SCREEN RAPID (URINE) Reviewed date:12/23/2024 04:20:41 PM Interpretation: Performing Lab: Notes/Report: [facility] ,Cannabinoid Screen UrineNEGATIVENEGATIVEPhencyclidine Screen UrineNEGATIVE NEGATIVECocaine Screen UrineNEGATIVENEGATIVEMethamphetamines Screen Urine NEGATIVENEGATIVEOpiate Screen UrineNEGATIVENEGATIVEAmphetamine Screen Urine NEGATIVENEGATIVEBenzodiazepines Screen UrineNEGATIVENEGATIVETricyclic Antidepressant UrineNEGATIVENEGATIVEMethadone Screen UrineNEGATIVENEGATIVE Barbiturates Screen UrineNEGATIVENEGATIVEOxycodone Screen UrineNEGATIVENEGATIVE Buprenorphine Screen UrineNEGATIVENEGATIVE DRUG CLASS TEST SYSTEM CUT-OFF CONCENTRATIONS ARE FOLLOWS: AMP (Amphetamine): 500 ng/mL BAR (Barbiturates): 200 ng/mL BZO (Benzodiazepines): 150 ng/mL BUP (Buprenorphine): 10 ng/mL JÚNIOR (Cocaine): 150 ng/mL mAMP (Methamphetamine): 500 ng/mL MTD (Methadone): 200 ng/mL OPI (Opiates): 100 ng/mL OXY (Oxycodone): 100 ng/mL PCP (Phencyclidine): 25 ng/mL THC (Cannabinoids): 50 ng/mL TCA (Trycyclic Antidepressants): 300 ng/mL Performing Lab:see note - [facility] LBLAB TESTING Reviewed date:12/24/2024 05:47:23 PM Interpretation: Performing Lab: Notes/Report: [id number] ANTIBODY IDENTIFICATION [facility] ,Miscellaneous TestCOMMENT. Test Ordered: [id number] Antibody Identification Antibody Id. #1 Note: CB Anti-Fy(a) [place] Reference Range: . Kaitlynn Titer #1 Comment CB Reference Range: . The antibody is too weak to titer at this time. If a numerical titer result has been reported, please note that this result is the reciprocal value of titer results formerly reported as 1:2,1:4, 1:8, etc. These results are now reported as 2, 4, 8, etc. The [place] [employer] has recommended this change in titer reporting formats to simply reflect the reciprocal value of the titer. Antibody Id. #2 STAFFING CLERK NOLAB Reference Range: . Kaitlynn Titer #2 STAFFING CLERK NOLAB Reference Range: . Performed at: - [facility] [address] [id number] [place]: Immanuel Patel PhD, Phone: [phone] Performing Lab:see noteLC - [facility] LBUA RANDOM W or MICROSCOPIC Reviewed date:12/23/2024 04:20:41 PM Interpretation: Performing Lab: Notes/Report: [facility] ,Color UrineLT. YELLOWYELLOWClarity UrineCLEARCLEARSpecific [place] Urine1.010 1.005-1.025pH Urine6.05.0-9.0Protein UrineNEGATIVENEG/TRACE mg/dLGlucose Urine UANEGATIVENEGATIVE mg/dLBilirubin UrineNEGATIVENEGATIVEKetones UrineNEGATIVE NEGATIVE mg/dLBlood UrineNEGATIVENEGATIVENitrite UrineNEGATIVENEGATIVE Urobilinogen Urine0.20.2-1.0 EU/dLLeukocyte Esterase UrineNEGATIVENEGATIVEWBC UrineNONE SEENNONE SEEN #/HPFRBC UrineNONE SEEN0-2 #/HPFBacteria UrineTRACENONE SEEN #/HPFMucus UrineTRACENONE SEENSquamous Epithelial Cell UrineFEWNONE/RARE #/LPFCrystals Seen?None SeenNone Seen #/HPFCast Seen?NONE SEENNONE SEEN #/LPF Performing Lab:see noteML - [facility] LBType and Screen Reviewed date:12/25/2024 12:41:16 PM Interpretation: Performing Lab: Notes/Report: [facility] ,Blood TypeAB PositiveAntibody ScreenPOSITIVEHIV Ab/p24 Ag with Reflex Reviewed date:12/24/2024 08:52:19 AM Interpretation: Performing Lab: Notes/Report: [facility] ,HIV Ab/p24 Ag ScreenNon ReactiveNon Reactive HIV-1/HIV-2 antibodies and HIV-1 p24 antigen were NOT detected. There is no laboratory evidence of HIV infection. HIV Negative Performed at: - [address] [id number] [place]: Immanuel Patel PhD, Phone: [phone] Performing Lab:see noteLC - [facility] LBUrine Culture - [facility] Reviewed date:12/25/2024 06:02:04 PM Interpretation: Performing Lab: Notes/Report: [facility] ,Urine Culture - [facility]MCSee Below For Report Urine Culture - [facility] <9,000 colonies/ml mixed bacterial skin contaminants Urine Culture - [facility]2 Days Urine Culture - [facility] <9,000 colonies/ml mixed bacterial skin contaminants Urine Culture - [facility] Urine Culture - [facility] <9,000 colonies/ml mixed bacterial skin contaminants Urine [facility] - [facility] Urine Culture - [facility] <9,000 colonies/ml mixed bacterial skin contaminants Urine Culture - [id number] [place] [address] Urine Culture - [facility] <9,000 colonies/ml mixed bacterial skin contaminants Performing Lab:see noteML - [facility] LBPREG QUANT HCG Reviewed date:12/05/2024 05:12:15 PM Interpretation: Performing Lab: Notes/Report: [facility] ,HCG Ghvybtuslroj6041 5-50 0.2-1 WEEK 50-500 1-2 WEEKS 100-5,000 2-3 WEEKS 500-10,000 3-4 WEEKS 1,000-50,000 4-5 WEEKS 10,000-100,000 5-6 WEEKS 15,000-200,000 6-8 WEEKS 10,000-100,000 2-3 MONTHS Performing Lab:see noteML - [facility] LBPREG QUANT HCG Reviewed date:12/03/2024 12:29:07 PM Interpretation: Performing Lab: Notes/Report: [facility] ,HCG Qjptffosmzap589 5-50 0.2-1 WEEK 50-500 1-2 WEEKS 100-5,000 2-3 WEEKS 500-10,000 3-4 WEEKS 1,000-50,000 4-5 WEEKS 10,000-100,000 5-6 WEEKS 15,000-200,000 6-8 WEEKS 10,000-100,000 2-3 MONTHS Performing [facility] LBTestosterone,Free and Total Reviewed date:08/03/2024 09:49:10 PM Interpretation: Performing Lab: Notes/Report: [facility] ,Mdkfkrrqexeo696-42 ng/dLFree Testosterone(Direct)0.60.0-4.2 pg/mL Performed at: [address] [id number] [place]: Immanuel Patel PhD, Phone: [phone] Performed at: [address] [id number] [place]: Jemal Phillips MD, Phone: [phone] Performing [facility] LBEstradiol Reviewed date:08/03/2024 09:49:10 PM Interpretation: Performing Lab: Notes/Report: [facility] ,Euflddete33.5. pg/mL Adult Female Range Follicular phase 12.5 - 166.0 Ovulation phase 85.8 - 498.0 Luteal phase 43.8 - 211.0 Postmenopausal <6.0 - 54.7 1st trimester 215.0 - >4300.0 Carin ECLIA methodology Performing Lab:[facility] LBFSH Reviewed date:08/03/2024 09:49:10 PM Interpretation: Performing Lab: Notes/Report: [facility] ,FSH5.0. mIU/mL Adult Female Range Follicular phase 3.5 - 12.5 Ovulation phase 4.7 - 21.5 Luteal phase 1.7 - 7.7 Postmenopausal 25.8 - 134.8 Performing Lab:see [facility] LBProgesterone Reviewed date:08/03/2024 09:49:10 PM Interpretation: Performing Lab: Notes/Report: [facility] ,Progesterone0.2. ng/mL Follicular phase 0.1 - 0.9 Luteal phase 1.8 - 23.9 Ovulation phase 0.1 - 12.0 First trimester 11.0 - 44.3 Second trimester 25.4 - 83.3 Third trimester 58.7 - 214.0 Postmenopausal 0.0 - 0.1 Performed at: [address] [id number] [place]: Immanuel Patel PhD, Phone: [phone] Performing Lab:see [facility] LBRPR, Rfx Qn RPR/Confirm TP Reviewed date:12/24/2024 08:52:19 AM Interpretation: Performing Lab: Notes/Report: [facility] ,RPRNon ReactiveNon ReactivePerforming Lab:see [facility] LBHCV Antibody Reviewed date:12/24/2024 08:52:19 AM Interpretation: Performing Lab: Notes/Report: [facility] ,HCV AntibodyNon ReactiveNon Reactive HCV antibody alone does not differentiate between previously resolved infection and active infection. Equivocal and Reactive HCV antibody results should be followed up with an HCV RNA test to support the diagnosis of active HCV infection. Performing Lab:see [facility] LBHBsAg Screen Reviewed date:12/24/2024 08:52:19 AM Interpretation: Performing Lab: Notes/Report: [facility] ,HBsAg ScreenNegativeNegative Performed at: [address] [id number] [place]: Immanuel Patel PhD, Phone: [phone] Performing Lab:see [facility] LBRUBELLA AB IGG Reviewed date:12/24/2024 08:52:19 AM Interpretation: Performing Lab: Notes/Report: [facility] ,Rubella Antibodies, IgG3.30Immune >0.99 index Non-immune <0.90 Equivocal 0.90 - 0.99 Immune >0.99 Performed at: [address] [id number] [place]: Immanuel Patel PhD, Phone: [phone] Performing Lab:see [facility] LBType and Screen Reviewed date:02/28/2025 04:41:19 PM Interpretation: Performing Lab: Notes/Report: [facility] ,Blood TypeAB PositiveAntibody ScreenPOSITIVETSH Reviewed date:07/30/2024 07:13:33 PM Interpretation: Performing Lab: Notes/Report: [facility] ,Thyroid Stimulating Hormone0.6230.358-3.740 uIU/mLPerforming Lab:see candice - [facility] LBGLUCOSE BLOOD Reviewed date:07/30/2024 07:13:33 PM Interpretation: Performing Lab: Notes/Report: [facility] ,Acfswsu0596-784 mg/dLPerforming Lab:see noteML - [facility] LBFREE T4 Reviewed date:07/30/2024 07:13:33 PM Interpretation: Performing Lab: Notes/Report: [facility] ,Free T41.050.76-1.46 ng/dLPerforming Lab:see noteML - [facility] LB Reason For Referral No Information Medications Medication SIG (Take, Route, Frequency, Duration) Notes Start Date End Date Status Amoxicillin-Pot Clavulanate 875-125 MG 1 tablet Orally every 12 hrs; Duration: 10 day(s) 3ActivePrenatal 28-0.8 MG1 tablet Orally Once a dayActive Social History Tobacco Use: Social History Observation Description Date Details (start date - stop date) Never Smoker NA - NA Tobacco Use/Smoking Question Answer Notes Patient is a nonsmoker Alcohol Screen (Audit-C) Question Answer Notes Did you have a drink containing alcohol in the p ast year? No Pkohqd8IrrzvipoucczylQccmyasd Problems Problem Type SNOMED Code ICD Code Onset Dates Problem Status W/U Status Risk Notes Problem Attention deficit hy peractivity disorder (488083083) ADHD (attention deficit hyperactivity disorder) (F90.9) ActiveconfirmedProblemSeasonal allergic rhinitis (414638631)Seasonal allergic rhinitis (J30.2)ActiveconfirmedProblemAcute sinusitis (70721453)Acute sinus infection (J01.90)ActiveconfirmedProblemPelvic congestion syndrome (94308991) Pelvic congestion syndrome (N94.89)Activeconfirmed Plan Of Treatment No Information Insurance Providers Payer Name Payer Address Payer Phone Subscriber Number Group Number Insured Name Patient Relationship to Insured Coverage Start Date Coverage End Date [employer] PPO PLUS LOCAL PLAN [address] [place] [phone] [id number] Mihir Meli Self - patient is the insured 3 Medical (General) History Medical History History ICD Code Bunion M21.619 Seasonal allergic rhinitis J30.2 Pelvic congestion syndrome N94.89 ADHD (attention deficit hyperactivity di sorder) F90.9 Varicella without complication B01.9 Scoliosis M41.9 Surgical History Surgery Date(Month/Year) Spinal fusion lumbar and thoracic 2013 Hospitalization History Reason Date(Month/Year) child see above
--- OUTSIDE RECORDS SUMMARY | 2025-03-02 08:16 | XMS_ITS | Encounter Summary ---
Author Organization [facility] Address [address] [place] [address] Care Team Providers Care Psychiatric Nurse Name Role Phone Mariusz Becker MD Primary Care Provider [phone] Encounter Details DateTypeDepartmentCare Team (Latest Contact Info)Gkveiehutml11/10/2025Telephone [facility] [place] [facility] [address] [place] [phone] Sheela Morataya DO [address] [place] [address] Social History Tobacco UseTypesPacks/DayYears UsedDateSmoking Tobacco: NeverSmokeless Tobacco: NeverAlcohol UseStandard Drinks/WeekCommentsNever0 (1 standard drink = 0.6 oz pure alcohol)caffeine:1cup per dayEducationAnswerDate RecordedWhat is the highest level of school you have completed or the highest degree you have received?Bachelor's degree (e.g., BA, AB, BS)3Estimated Date of JeiajtyrWrpkhqfjOea74/27/2026Based on last menstrual period of 11/05/2024Sex and Gender InformationValueDate RecordedSex Assigned at BirthNot on fileLegal Sex Hwlobt5405/31/2022 7:25 PM EDTGender IdentityNot on fileSexual OrientationNot on filedocumented as of this encounter Miscellaneous Notes * Addendum Note - Shaggy Elder RN - 02/25/2025 3:41 PM ESTAddended by: SHAGGY ELDER on: 02/25/2025 03:41 PM Modules accepted: Orders * Telephone Encounter - Shaggy Elder RN - 02/25/2025 3:41 PM EST Called and spoke with pt. Discussed testing. Order sent for ABO[facility]RH [facility]. * Telephone Encounter - Vicki Luther MA - 02/25/2025 2:43 PM EST Pt called business services intern triage line at this time. verified. Pt asking if she needs to get a typing screen done as we never received results from 12/2024 when she originally got it done. Pt states that on her end, she can see that the titers were too weak to test. Pt has appt 02/27 with [facility]. Pt would like to go to the [facility] Pt also requesting our fax number to give to to send results. documented in this encounter Plan of Treatment DateTypeDepartmentCare Team (Latest Contact Info)Euvazccrzpe44/16/2025 2:45 PM ESTRoutine [facility] [place] [facility] [address] [place] [phone] Sheela Morataya, DO [address] [place] [address] 03/24/2025 8:45 AM ESTAncillary Procedure [facility] [place] [facility] [address] [place] [phone] 03/24/2025 9:15 AM ESTRoutine [facility] [place] [facility] [address] [place] [phone] Sheela Morataya, DO [address] [place] [address] 04/07/2025 10:15 AM ESTOffice Visit [facility] [place] [facility] [address] [place] [phone] Sheela Morataya DO [address] [place] [address] NameTypePriorityAssociated DiagnosesOrder ScheduleABO/RhLabRoutine care, subsequent , second trimester ([facility]) Expected: 02/25/2025 (Approximate), Expires: 02/25/2026documented as of this encounter Goals GoalPatient Goal TypeAssociated ProblemsRecent ProgressPatient-Stated?Author Reminders Care PlanOB RemindersChamp Benson LPNdocumented as of this encounter Visit Diagnoses Diagnosis care, subsequent , first trimester ([facility]) care, subsequent , second trimester ([facility]) 16 weeks gestation of ([facility]) documented in this encounter Additional Health Concerns Active ProblemsNoted DateDiagnosed DateOB Ycwljsjan22/29/2025 documented as of this encounter Care Teams Team MemberRelationshipSpecialtyStart DateEnd Date Mariusz Becker MD [address] [place] [address] PCP - GeneralFamily Medicine08/31/22documented as of this encounter
--- OUTSIDE RECORDS SUMMARY | 2025-03-02 08:16 | XMS_ITS | Clinical Summary ---
Author Organization [facility] tem Address [id number] [address] [place] [address] Care Team Providers Care Slasher Hand Name Role Phone No Pcp, No Pcp Primary Care Provider Unavailabl e Social History Tobacco UseTypesPacks/DayYears UsedDateSmoking Tobacco: Never AssessedChildcare AnswerDate SefjrjcnOphkrdaewIdgqhlx42/13/2019EmploymentAnswerDate Recorded WlzcvikhgzXixywhi76/13/2019Purpose - LifeAnswerDate RecordedPurpose and direction in xqvxUgbldqy88/11/2021CommentsUnknownSex and Gender InformationValueDate RecordedSex Assigned at BirthNot on fileLegal SexFemale 08/17/2017 12:42 PM EDTGender IdentityNot on fileSexual OrientationNot on file Plan of Treatment Not on file Medical Devices Not on file Insurance Care Teams Team MemberRelationshipSpecialtyStart DateEnd Date No Pcp, No Pcp RADHA Aaron [address] [facility]
== END 2025-03-02 08:13 | disposition home or self-care (01) ==
LOC: LAB 08:14
PROVIDERS: PCP Family Medicine; Visit Provider Obstetrics & Gynecology
DX: Z34.82 Encounter for supervision of other normal pregnancy, second trimester (principal)
CPT/HCPCS: 36415